=== PATIENT | female | born 1960 | race African-American/Black ===

== ENCOUNTER 2016-07-09 17:00 | Emergency (ER) | payer SELFPAY ==
[2016-07-09] MEDS ORDERED: Benzonatate 100 MG CAP ONE (17:16)
--- NOTE | 2016-07-09 18:03 | ERRECORD ---
[facility] EMERGENCY RECORD HPI FLU-LIKE SYNDROME (17:20 JPIP) CHIEF COMPLAINT: Patient presents for evaluation of body aches, Patient presents for evaluation of fever, subjective, Patient presents for evaluation of upper respiratory infection, Patient presents for evaluation of +cough and congestion. HISTORIAN: History provided by patient. LOCATION: Symptoms are generalized. QUALITY: Pain is dull in nature, described as aching. SEVERITY: Current severity of pain rated as 8/10. TIME COURSE: Sudden onset of symptoms, There has been no change in the patient's symptoms over time, are constant. ASSOCIATED WITH: No associated abdominal pain, Associated with cough, No associated diarrhea, Associated with headache, No associated vomiting, No associated neck pain, No associated rash, No associated shortness of breath, No associated urinary tract infection signs or symptoms. EXACERBATED BY: Patient's condition exacerbated by nothing. RELIEVED BY: Patient's condition relieved by nothing. ROS (17:21 JPIP) CONSTITUTIONAL: Historian reports chills, reports fever. Subjective fever of felt feverish, Historian reports malaise. EYES: Historian denies eye pain, denies eye redness. ENT: Historian denies dysphagia, reports rhinorrhea, denies sore throat. CARDIOVASCULAR: Historian denies chest pain, denies dyspnea on exertion, denies palpitations. RESPIRATORY: Historian reports cough, reports shortness of breath, denies sputum, denies stridor, denies wheezing. thin sputum with occasional blood streaking. GI: Historian denies nausea, denies vomiting. MUSCULOSKELETAL: Historian reports myalgias. SKIN: Historian denies rash, denies skin changes, denies skin lesions. NEUROLOGIC: Historian reports headache, denies lethargy. NOTES: All systems reviewed, negative except as described above. PAST MEDICAL HISTORY MEDICAL HISTORY: Flu vaccine not up to date, Tetanus immunization up to date, Pneumococcal vaccine not up to date, Past medical history includes history of hypertension, which has been treated. (17:07 ERUI) FEMALE SURGICAL HISTORY: Surgical history of section, Notes: x2. 07/09/15. (17:07 ERUI) PSYCHIATRIC HISTORY: No previous psychiatric history. (17:07 ERUI) &a-1R&a+25V*p+0X*b9826K*c202B*c15G*c2P*p-0X&a-25V&a+1R Name: Cornelia Diaz : 1960 F55 MedRec: [id number] AcctNum: [id number] Prepared: ThuJul 09, 2016 17:55 by Interface Page 1 of 3 pMD [facility] EMERGENCY RECORD SOCIAL HISTORY: Patient denies alcohol use, Patient denies drug use, Patient has no smoking history, Patient denies alcohol use, Patient denies drug use, Patient has no smoking history, Lives at home, with family. (17:07 ERUI) NOTES: Nursing records reviewed, Medication list reviewed. (17:23 JPIP) KNOWN ALLERGIES latex gloves (Unconfirmed): Reaction: Anaphylaxis, Severity: Severe, Source: Patient UNKNOWN PAIN PILL I TOOK YEARS AGO (Unconfirmed) CURRENT MEDICATIONS No recorded medications VITAL SIGNS VITAL SIGNS: BP: 135/99, Pulse: 93, Resp: 20, Temp: 98.5 (Oral), O2 sat: 99 on Room Air, Time: 07/09/2016 17:06. (17:06 KMOR) Pain: 8, Time: 07/09/2016 17:07. (17:07 ERUI) PHYSICAL EXAM (17:22 JPIP) CONSTITUTIONAL: Vital signs reviewed, Patient afebrile, Pulse normal, Blood pressure, hypertensive, Respiratory rate normal, Patient appears, uncomfortable, ill appearing, Patient appears in pain, in mild pain distress, Patient alert and oriented to person, place and time. HEAD: Head exam included findings of head atraumatic, normocephalic. EYES: Eye exam included findings of eyelids normal to inspection, Conjunctiva normal, Sclera normal, no periorbital ecchymosis, no periorbital edema, no periorbital erythema. ENT: Ear exam normal, external ear normal, tympanic membranes normal, no foreign body, no drainage, no bleeding, Pharynx exam normal, not injected, no swelling, symmetrical, Uvula exam normal, midline, no edema, Mouth exam normal, mucous membranes moist. NECK: Neck exam included findings of normal range of motion, Trachea midline, Cervical adenopathy, multiple nodes, swollen, no tenderness. RESPIRATORY CHEST: Respiratory exam included findings of no respiratory distress, Breath sounds clear, No wheezing, No rales, No rhonchi, Breath sounds not absent, Breath sounds not diminished. CARDIOVASCULAR: Cardiovascular exam included findings of, rate tachycardic, rhythm regular, Heart sounds normal, no murmurs, no rub. UPPER EXTREMITY: Upper extremity exam included findings of inspection normal, Range of motion normal. NEURO: Ruiz coma scale 15, Neuro exam findings include patient oriented to person, place and time, no focal motor deficits. SKIN: Skin exam included findings of skin warm, dry, and normal &a-1R&a+25V*p+0X*g7952F*c202B*c15G*c2P*p-0X&a-25V&a+1R Name: Cornelia Diaz : 1960 F55 MedRec: [id number] AcctNum: [id number] Prepared: ThuJul 09, 2016 17:55 by Interface Page 2 of 3 pMD [facility] EMERGENCY RECORD in color. LYMPHATIC: Lymphatic exam included findings of cervical adenopathy, multiple nodes, swollen. PSYCHIATRIC: Psychiatric exam included findings of patient oriented to person place and time, Normal affect. MEDICATION ADMINISTRATION SUMMARY Drug Name: Amoxil, Dose Ordered: 1000 mg, Route: Oral, Status: Given, Time: 17:47 07/09/2016, Drug Name: Vanda Ji, Dose Ordered: 100 mg, Route: Oral, Status: Given, Time: 17:18 07/09/2016, Detailed record available in Medication Service section. PROBLEM LIST No recorded problems DIAGNOSIS (17:43 JPIP) FINAL: PRIMARY: upper respiratory infection. PRESCRIPTION promethazine-DM: SYRUP : : ORAL : Quantity: 5 Unit: mL Route: ORAL Schedule: every 8 hours PRN Dispense: 120 ml May substitute. Refills: No Refills . (17:20 JPIP) NOTES: for cough No refills. (17:20 JPIP) Amoxil: CAPSULE (HARD, SOFT, ETC.) : 500 mg : ORAL : Quantity: 1 Unit: mg Route: ORAL Schedule: 3 times a day (after meals) Dispense: 30 May substitute. Refills: No Refills . (17:42 JPIP) NOTES: No refills. (17:42 JPIP) DISPOSITION PATIENT: Disposition Type: Discharge, Disposition: *Discharge Home, Condition: Good. (17:43 JOYCE) Patient left the department. (17:53 NIHARIKA) [place]: NIHARIKA=GIDEON Manzano, Leatha COOK=DO Nevarez Joseph KMOR=GIDEON Gill, Yessica &a-1R&a+25V*p+0X*a5560H*c202B*c15G*c2P*p-0X&a-25V&a+1R Name: Cornelia Diaz : 1960 F55 MedRec: [id number] AcctNum: [id number] Prepared: ThuJul 09, 2016 17:55 by Interface Page 3 of 3 pMD MTDD
--- NOTE | 2016-07-09 18:08 | PICIS ---
[facility] EMERGENCY RECORD TRIAGE (17:05 ERUI) TRIAGE NOTES: c/o cough, headache, fever onset on thursday. (17:05 ERUI) PATIENT: NAME: Cornelia Diaz, AGE: 55, GENDER: female, : Thu1960, TIME OF GREET: ThuJul 09, 2016 17:01, PREFERRED LANGUAGE: Turkish, ETHNICITY: Not or , ECODE BILLING MAP: [facility], SSN: [id number], Zip Code: [address], KG WEIGHT: [phone], , , PERSON ID: [id number], PAYMENT: SJ[employer] Self Pay, PCP: MD Banks Kyle. (17:05 ERUI) PHONE: . (17:19) COMPLAINT: cough , headache. (17:05 ERUI) ADMISSION: URGENCY: 4 Non Urgent, ADMISSION SOURCE: Home, TRANSPORT: CAR, BED: TRIAGE. (17:05 ERUI) SIRS SCORING: Heart Rate 55-109 (0), Temp range 96.8-101.1 (0), respiratory rate 12-24 (0), Mental Status altered: no (0). (17:07 ERUI) TRIAGE SCREENING: Patient denies suicidal ideation, Patient denies presence of domestic violence. (17:07 ERUI) TREATMENTS IN PROGRESS: Treatments given Prehospital: none. (17:07 ERUI) PROVIDERS: TRIAGE NURSE: Leatha Manzano RN. (17:05 ERUI) PREVIOUS VISIT ALLERGIES: latex gloves. (17:05 ERUI) latex gloves. (17:07 ERUI) KNOWN ALLERGIES latex gloves (Unconfirmed): Reaction: Anaphylaxis, Severity: Severe, Source: Patient UNKNOWN PAIN PILL I TOOK YEARS AGO (Unconfirmed) CURRENT MEDICATIONS No recorded medications VITAL SIGNS VITAL SIGNS: BP: 135/99, Pulse: 93, Resp: 20, Temp: 98.5 (Oral), O2 sat: 99 on Room Air, Time: 07/09/2016 17:06. (17:06 KMOR) Pain: 8, Time: 07/09/2016 17:07. (17:07 ERUI) NURSING ASSESSMENT: ENT (17:08 ERUI) CONSTITUTIONAL: Patient arrives ambulatory, Gait steady, History obtained from patient, Patient appears comfortable, Patient cooperative, Patient alert, Oriented to person, place and time, Skin warm, Skin dry, Patient complains of cough, headache, bodyache. PAIN: aching pain, bodyaches, constant, on a scale 0-10 patient rates pain as 8, Pain exacerbated by nothing, Nothing has been tried to alleviate the pain. ENT: Ear assessment findings include ear normal to inspection, Mouth and throat assessment findings include mouth inspection normal, no associated fever, Associated with headache. RESPIRATORY/CHEST: Breath sounds clear, Respiratory assessment &a-1R&a+25V*p+0X*u8480N*c202B*c15G*c2P*p-0X&a-25V&a+1R Name: Cornelia Diaz : 1960 F55 MedRec: [id number] AcctNum: [id number] Prepared: ThuJul 09, 2016 18:01 by Interface Page 1 of 7 pMD [facility] EMERGENCY RECORD findings include respiratory effort easy, Respirations regular, Conversing normally, Neck and chest exam findings include trachea midline, Chest expansion equal, Chest movement symmetrical, no signs of distress, Associated with cough, dry, no associated fever. SAFETY: Side rails up, Cart/Stretcher in lowest position, Call light within reach, Hospital ID band on. NURSING PROCEDURE: DISCHARGE NOTE (17:50 ERUI) DISCHARGE: Patient discharged to home, ambulating without assistance, driving self, unaccompanied, Summary of Care printed/ provided, Discharge instructions given to patient, Simple or moderate discharge teaching performed, Prescriptions given and instructions on side effects given, Name of prescription(s) given: AMOXIL, PROMETHAZINE DM, Above person(s) verbalized understanding of discharge instructions and follow-up care. BELONGINGS: Belongings remain with patient, Valuables remain with patient. NURSING PROCEDURE: ENT (17:07 KMOR) PATIENT IDENTIFIER: Patient actively involved in identification process, Patient's identity verified by patient stating name, Patient's identity verified by patient stating date. ENT: Nasal swab collected, labeled in the presence of the patient and sent to lab for testing of, influenza A, influenza B, collected by GIDEON Juan. NOTES: Patient tolerated procedure well. ORDER DETAILS Order Name: Influenza A&B Ag Screen, Status: Active, Time: 17:07 07/09/2016, User: JAVAD, - Ordered for: DO Nevarez Joseph, - Entered by: GIDEON Gill Krista - ThuJul 09, 2016 17:07, - Quantity: 1. MEDICATION ADMINISTRATION SUMMARY Drug Name: Amoxil, Dose Ordered: 1000 mg, Route: Oral, Status: Given, Time: 17:47 07/09/2016, Drug Name: Tessalon Perles, Dose Ordered: 100 mg, Route: Oral, Status: Given, Time: 17:18 07/09/2016, Detailed record available in Medication Service section. MEDICATION SERVICE Amoxil: Order: Amoxil (amoxicillin trihydrate) - Dose: 1000 mg : Oral Schedule: Now Ordered by: Abhinav Nevarez DO Entered by: Abhinav Nevarez DO ThuJul 09, 2016 17:42 , &a-1R&a+25V*p+0X*t7542H*c202B*c15G*c2P*p-0X&a-25V&a+1R Name: Cornelia Diaz : 1960 F55 MedRec: [id number] AcctNum: [id number] Prepared: ThuJul 09, 2016 18:01 by Interface Page 2 of 7 pMD [facility] EMERGENCY RECORD Acknowledged by: Leatha Manzano RN ThuJul 09, 2016 17:43 Documented as given by: Leatha Manzano RN ThuJul 09, 2016 17:47 Patient, Medication, Dose, Route and Time verified prior to administration. Amount given: 1000MG, Site: Medication administered P.O., Patient appears Awake and alert- acceptable, Correct patient, time, route, dose and medication confirmed prior to administration, Patient advised of actions and side-effects prior to administration, Allergies confirmed and medications reviewed prior to administration. : Follow Up : Response assessment performed, No signs or symptoms of allergic reaction noted. (17:50 ERUI) Vanda Ji: Order: Shannonsalon Perles (benzonatate) - Dose: 100 mg : Oral Schedule: Now Ordered by: Abhinav Nevarez DO Entered by: Abhinav Nevarez DO ThuJul 09, 2016 17:15 , Acknowledged by: Yessica Gill RN ThuJul 09, 2016 17:15 Documented as given by: Yessica Gill RN ThuJul 09, 2016 17:18 Patient, Medication, Dose, Route and Time verified prior to administration. Amount given: 100mg, Site: Medication administered P.O., Correct patient, time, route, dose and medication confirmed prior to administration, Patient advised of actions and side-effects prior to administration, Allergies confirmed and medications reviewed prior to administration, Patient in position of comfort, Side rails up, Cart in lowest position, Family at bedside. : Follow Up : Response assessment performed, No signs or symptoms of allergic reaction noted. (17:50 ERUI) HPI FLU-LIKE SYNDROME (17:20 JPIP) CHIEF COMPLAINT: Patient presents for evaluation of body aches, Patient presents for evaluation of fever, subjective, Patient presents for evaluation of upper respiratory infection, Patient presents for evaluation of +cough and congestion. HISTORIAN: History provided by patient. LOCATION: Symptoms are generalized. QUALITY: Pain is dull in nature, described as aching. SEVERITY: Current severity of pain rated as 8/10. TIME COURSE: Sudden onset of symptoms, There has been no change in the patient's symptoms over time, are constant. ASSOCIATED WITH: No associated abdominal pain, Associated with cough, No associated diarrhea, Associated with headache, No associated vomiting, No associated neck pain, No associated rash, No associated shortness of breath, No associated urinary tract infection signs or symptoms. EXACERBATED BY: Patient's condition exacerbated by nothing. RELIEVED BY: Patient's condition relieved by nothing. &a-1R&a+25V*p+0X*m1895Z*c202B*c15G*c2P*p-0X&a-25V&a+1R Name: Cornelia Diaz : 1960 F55 MedRec: [id number] AcctNum: [id number] Prepared: ThuJul 09, 2016 18:01 by Interface Page 3 of 7 pMD [facility] EMERGENCY RECORD ROS (17:21 JPIP) CONSTITUTIONAL: Historian reports chills, reports fever. Subjective fever of felt feverish, Historian reports malaise. EYES: Historian denies eye pain, denies eye redness. ENT: Historian denies dysphagia, reports rhinorrhea, denies sore throat. CARDIOVASCULAR: Historian denies chest pain, denies dyspnea on exertion, denies palpitations. RESPIRATORY: Historian reports cough, reports shortness of breath, denies sputum, denies stridor, denies wheezing. thin sputum with occasional blood streaking. GI: Historian denies nausea, denies vomiting. MUSCULOSKELETAL: Historian reports myalgias. SKIN: Historian denies rash, denies skin changes, denies skin lesions. NEUROLOGIC: Historian reports headache, denies lethargy. NOTES: All systems reviewed, negative except as described above. PAST MEDICAL HISTORY MEDICAL HISTORY: Flu vaccine not up to date, Tetanus immunization up to date, Pneumococcal vaccine not up to date, Past medical history includes history of hypertension, which has been treated. (17:07 ERUI) FEMALE SURGICAL HISTORY: Surgical history of section, Notes: x2. 07/09/15. (17:07 ERUI) PSYCHIATRIC HISTORY: No previous psychiatric history. (17:07 ERUI) SOCIAL HISTORY: Patient denies alcohol use, Patient denies drug use, Patient has no smoking history, Patient denies alcohol use, Patient denies drug use, Patient has no smoking history, Lives at home, with family. (17:07 ERUI) NOTES: Nursing records reviewed, Medication list reviewed. (17:23 JPIP) PHYSICAL EXAM (17:22 JPIP) CONSTITUTIONAL: Vital signs reviewed, Patient afebrile, Pulse normal, Blood pressure, hypertensive, Respiratory rate normal, Patient appears, uncomfortable, ill appearing, Patient appears in pain, in mild pain distress, Patient alert and oriented to person, place and time. HEAD: Head exam included findings of head atraumatic, normocephalic. EYES: Eye exam included findings of eyelids normal to inspection, Conjunctiva normal, Sclera normal, no periorbital ecchymosis, no periorbital edema, no periorbital erythema. ENT: Ear exam normal, external ear normal, tympanic membranes normal, no foreign body, no drainage, no bleeding, Pharynx exam &a-1R&a+25V*p+0X*o0018Z*c202B*c15G*c2P*p-0X&a-25V&a+1R Name: Cornelia Diaz : 1960 F55 MedRec: [id number] AcctNum: [id number] Prepared: ThuJul 09, 2016 18:01 by Interface Page 4 of 7 pMD [facility] EMERGENCY RECORD normal, not injected, no swelling, symmetrical, Uvula exam normal, midline, no edema, Mouth exam normal, mucous membranes moist. NECK: Neck exam included findings of normal range of motion, Trachea midline, Cervical adenopathy, multiple nodes, swollen, no tenderness. RESPIRATORY CHEST: Respiratory exam included findings of no respiratory distress, Breath sounds clear, No wheezing, No rales, No rhonchi, Breath sounds not absent, Breath sounds not diminished. CARDIOVASCULAR: Cardiovascular exam included findings of, rate tachycardic, rhythm regular, Heart sounds normal, no murmurs, no rub. UPPER EXTREMITY: Upper extremity exam included findings of inspection normal, Range of motion normal. NEURO: Wesley coma scale 15, Neuro exam findings include patient oriented to person, place and time, no focal motor deficits. SKIN: Skin exam included findings of skin warm, dry, and normal in color. LYMPHATIC: Lymphatic exam included findings of cervical adenopathy, multiple nodes, swollen. PSYCHIATRIC: Psychiatric exam included findings of patient oriented to person place and time, Normal affect. EVENTS TRANSFER: Triage to Emergency Triage. (ThuJul 09, 2016 17:05 ERUI) Emergency Triage to Emergency Room -03. (17:06 ERUI) Removed from Emergency Emergency Room -03. (17:53 ERUI) O2SAT INTERPRETATION (17:24 JPIP) O2SAT: Continuous pulse oximetry, Oxygen saturation 99%, on room air, Oxygen saturation interpretation: Normal, No intervention required. PROBLEM LIST No recorded problems DIAGNOSIS (17:43 JPIP) FINAL: PRIMARY: upper respiratory infection. DISPOSITION PATIENT: Disposition Type: Discharge, Disposition: *Discharge Home, Condition: Good. (17:43 JPIP) Patient left the department. (17:53 ERUI) INSTRUCTION (17:42 JPIP) DISCHARGE: UPPER RESP INFECTION ANTIBIOTIC TREATMENT ADULT. FOLLOWUP: MD Jocelyn, [facility], [address] [place], [place] [id number], . SPECIAL: Finish all your antibiotics Follow up with Primary Care Physician within 72 hours &a-1R&a+25V*p+0X*k8357N*c202B*c15G*c2P*p-0X&a-25V&a+1R Name: Cornelia Diaz : 1960 F55 MedRec: [id number] AcctNum: [id number] Prepared: ThuJul 09, 2016 18:01 by Interface Page 5 of 7 pMD [facility] EMERGENCY RECORD Return to the Emergency Department for increased symptoms problems or concerns Take acetaminophen or ibuprofen for pain or fever. PRESCRIPTION promethazine-DM: SYRUP : : ORAL : Quantity: 5 Unit: mL Route: ORAL Schedule: every 8 hours PRN Dispense: 120 ml May substitute. Refills: No Refills . (17:20 JPIP) NOTES: for cough No refills. (17:20 JPIP) Amoxil: CAPSULE (HARD, SOFT, ETC.) : 500 mg : ORAL : Quantity: 1 Unit: mg Route: ORAL Schedule: 3 times a day (after meals) Dispense: 30 May substitute. Refills: No Refills . (17:42 JPIP) NOTES: No refills. (17:42 JPIP) IMAGING (17:52 ERUI) *DISCHARGE INSTRUCTIONS RECEIPT: Image captured from scanner. *SUPPLY CHARGE SHEET: Image captured from scanner. RESULTS (17:41 JPIP) MICROBIOLOGY: Influenza A&B Ag Screen: [id number] Collection DT: ThuJul 09, 2016 17:39, See comment below , @ ER ROOM#: ER-03 Source: Nasal swab Spec Desc: , Influenza A Antigen: NEGATIVE for the , presence of , INFLUENZA A Antigen , Influenza B Antigen: NEGATIVE for the , presence of , INFLUENZA B Antigen , The rapid Flu A&B test can distinguish between influenza A , Influenza A&B Ag Screen See comment below , and B viruses, but it does not differentiate influenza , Influenza A&B Ag Screen See comment below , subtypes. , Influenza A&B Ag Screen See comment below , Influenza A&B Ag Screen See comment below , Influenza A&B Ag Screen See comment below , Influenza A&B Ag Screen See comment below , characteristics of this device with human specimens infected , Influenza A&B Ag Screen See comment below , with the 2008 H1N1 influenza virus have not been , Influenza A&B Ag Screen See comment below , established. For example: this test cannot distinguish , Influenza A&B Ag Screen See comment below , influenza infections caused by novel H1N1 influenza A , Influenza A&B Ag Screen See comment below , viruses versus seasonal influenza A viruses. , Influenza A&B Ag Screen See comment below , , &a-1R&a+25V*p+0X*y6129W*c202B*c15G*c2P*p-0X&a-25V&a+1R Name: Cornelia Diaz : 1960 5 MedRec: [id number] AcctNum: [id number] Prepared: ThuJul 09, 2016 18:01 by Interface Page 6 of 7 pMD [facility] EMERGENCY RECORD Influenza A&B Ag Screen See comment below , A negative result does not exclude influenza virus , Influenza A&B Ag Screen See comment below , infection; therefore, if more conclusive testing is desired, , Influenza A&B Ag Screen See comment below , follow up confirmatory testing is warranted., Influenza A&B Ag Screen See comment below . [place]: NIHARIKA=GIDEON Manzano, Leatha JPIP=DO Nevarez Joseph KMOR=GIDEON Gill, Yessica &a-1R&a+25V*p+0X*x6667U*c202B*c15G*c2P*p-0X&a-25V&a+1R Name: Cornelia Diaz : 1960 5 MedRec: [id number] AcctNum: [id number] Prepared: ThuJul 09, 2016 18:01 by Interface Page 7 of 7 pMD MTDD
[2016-07-09] MEDS ORDERED: AMOXicillin 250 MG CAP ONE (18:45)
== END 2016-07-09 17:50 | disposition home or self-care (01) ==
LOC: BURERS 17:00
DX: J06.9 Acute upper respiratory infection, unspecified (principal); I10 Essential (primary) hypertension
CPT/HCPCS: 99283

== ENCOUNTER 2017-03-25 17:23 | Emergency (ER) | payer SELFPAY ==
[2017-03-25] MEDS ORDERED: Bacitracin Zinc 1 Packet ONE (17:42)
[2017-03-25] MEDS ORDERED: Adacel (T-DAP) 0.5 ML VIAL ONE (17:44)
== END 2017-03-25 17:58 | disposition home or self-care (01) ==
LOC: BURERS 17:23
DX: T63.301A Toxic effect of unspecified spider venom, accidental (unintentional), initial encounter (principal); I10 Essential (primary) hypertension
CPT/HCPCS: 90471; 90715

== ENCOUNTER 2017-04-19 03:39 | Emergency (ER) | payer SELFPAY ==
[2017-04-19] MEDS ORDERED: Benzonatate 100 MG CAP ONE (04:38)
[2017-04-19] MEDS ORDERED: Azithromycin 250 MG TAB ONE (04:59)
== END 2017-04-19 05:20 | disposition home or self-care (01) ==
LOC: BURERS 03:39
DX: J20.9 Acute bronchitis, unspecified (principal); I10 Essential (primary) hypertension
CPT/HCPCS: 87081; 87430; 99283

== ENCOUNTER 2017-07-24 21:44 | Emergency (ER) | payer SELFPAY ==
[2017-07-24] MEDS ORDERED: traMADol HCl 50 MG TAB ONE (22:35)
[2017-07-24] MEDS ORDERED: Ibuprofen 800 MG TAB ONE (22:35)
--- NOTE | 2017-07-25 07:34 | RAD ---
LEFT ELBOW 4 VIEWS: DATE: 07/24/17. FINDINGS: No acute fracture or joint effusion was seen. A slight irregularity along the surface of the lateral humeral condyle does not appear recent. It could relate to an old injury. IMPRESSION: No acute findings. POS: HOME
== END 2017-07-24 22:41 | disposition home or self-care (01) ==
LOC: BURERS 21:44
DX: S50.02XA Contusion of left elbow, initial encounter (principal); S80.11XA Contusion of right lower leg, initial encounter; S80.12XA Contusion of left lower leg, initial encounter; I10 Essential (primary) hypertension; Z79.899 Other long term (current) drug therapy; W19.XXXA Unspecified fall, initial encounter

== ENCOUNTER 2019-12-25 06:40 | Emergency (ER) | payer SELFPAY ==
--- NOTE | 2019-12-25 11:29 | RAD ---
RIGHT ANKLE THREE VIEWS: 12/25/2019 FINDINGS: Soft tissue swelling is seen laterally. No fracture is appreciated. The joint surfaces are normal in appearance. A calcaneal spur is noted. IMPRESSION: Soft tissue swelling. POS: HOME
== END 2019-12-25 07:23 | disposition home or self-care (01) ==
LOC: BURERS 06:40
DX: S93.411A Sprain of calcaneofibular ligament of right ankle, initial encounter (principal); I10 Essential (primary) hypertension; Z79.899 Other long term (current) drug therapy; X50.1XXA Overexertion from prolonged static or awkward postures, initial encounter

== ENCOUNTER 2020-05-18 19:08 | Emergency (ER) | payer SELFPAY ==
[2020-05-18] MEDS ORDERED: Fentanyl 100 MCG/2 ML VIAL ONE (19:46)
[2020-05-18] MEDS ORDERED: Ondansetron PF 4 MG/2 ML Vial ONE (19:46)
[2020-05-18] MEDS ORDERED: Labetalol HCl 100 MG/20 ML VIAL ONE ×2 (19:46→19:48)
[2020-05-18 20:35] LABS: #Basophils 0.1 thou/uL (0.0-0.2); #Eosinphils 0.2 thou/uL (0.0-0.7); #Monocytes 0.5 thou/uL (0.11-0.59); #Neutrophils 7.3 thou/uL (1.40-6.50); %Basophils 0.7 % (0.0-1.0); %Eosinophils 1.8 % (0.0-10.0); %Lymphocytes 20.1 % (21.0-51.0); %Monocytes 5.3 % (0.0-10.0); %Neutrophils 72.1 % (42.0-75.0); Anisocytosis SLIGHT = 6-15 cells (100X) (0-5/hpf); Hemoglobin 12.2 g/dL (12.0-16.0); Hypochromia SLIGHT = 6-15 cells (100X) (0-5/hpf); MDiff Complete? YES; Mean Corpuscular HGB CONC 29.2 g/dL (32.0-36.0); Mean Corpuscular Hemoglobin 21.6 pg (27.0-31.0); Mean Platelet Volume 10.5 fL (7.4-10.4); Microcytosis SLIGHT = 6-15 cells (100X) (0-5/hpf); Ovalocytes SLIGHT = 2-5 cells (100X) (0-1/hpf); Platelet Count 241 thou/uL (130-400); Poikilocytosis SLIGHT = 6-15 cells (100X) (0-5/hpf); RBC Distribution Width 12.6 % (11.5-14.5); Red Blood Cell (RBC) Count 5.66 mill/uL (4.20-5.40); White Blood Cell (WBC) Count 10.2 thou/uL (4.8-10.8)
[2020-05-18 20:39] LABS: ALT (SGPT) 18 U/L (8-55); AST (SGOT) 16 U/L (5-34); Albumin 4.4 g/dL (3.5-5.0); Alkaline Phosphatase 119 U/L (40-110); Anion Gap 17 mmol/L (10-20); BUN (Urea Nitrogen) 15 mg/dL (9.8-20.1); Bilirubin, Total 0.2 mg/dL (0.2-1.2); Calc. Creatinine Clearance 0 mL/min (70-130); Calcium 10.2 mg/dL (7.8-10.44); Carbon Dioxide 26 mmol/L (22-29); Chloride 102 mmol/L (98-107); Estimated GFR-MDRD Greater than 90; Globulin 4.3 g/dL (2.4-3.5); Glucose 159 mg/dL (70-105); Potassium 3.2 mmol/L (3.5-5.1); Protein, Total 8.7 g/dL (6.0-8.3); Sodium 142 mmol/L (136-145)
[2020-05-18] MEDS ORDERED: Potassium Chloride 20 MEQ TAB ONE (21:21)
[2020-05-18] MEDS ORDERED: niCARdipine 20MG In NaCl 20 MG/200 ML BAG ONE (21:21)
--- NOTE | 2020-05-18 21:34 | CT ---
CT OF THE BRAIN WITHOUT CONTRAST: 05/18/20 A noncontrast study was done and compared with the prior exam of 06/30/13. There is a large amount of subarachnoid hemorrhage present, particularly around the area of the circl e of Dai. No single location seems to have greater collection of the blood than others. Maybe ther e is a trifle more around the left Sylvian fissure near the distal reaches of the left MCA, but the b lood is distributed fairly evenly. A ruptured intracranial aneurysm is presumed. The ventricles are currently normal in size and show no shift. There is no intraventricular blood. No mass, acute stroke or obvious focal edema was seen in the brain. The skull itself was unremarkable. The visible paranasal sinuses were clear with perhaps underdeveloped maxillary sinuses, particularly on the left. IMPRESSION: Sizable subarachnoid hemorrhage mainly centered around the region of the northway of Dai. A ruptured aneurysm is presumed. Further studies required. Findings discussed with Dr. Dowling at 2114 on 05/18/20. Code CR POS: HOME
--- NOTE | 2020-05-18 21:36 | RAD ---
PORTABLE CHEST: 05/18/20 An AP portable film at 2009 is compared with 10/04/15 study. Mild cardiomegaly is no different than before. There is no congestive change or large pleural effusio n today. The lungs are clear. At most, there might be a little bit of basilar atelectasis on the righ t side. Faint calcification is seen in the aortic arch. IMPRESSION: Mild but stable cardiomegaly. No acute findings. POS: HOME
== END 2020-05-18 22:07 | disposition short-term general hospital (02) ==
LOC: BURERS 19:08
DX: I60.9 Nontraumatic subarachnoid hemorrhage, unspecified (principal); I10 Essential (primary) hypertension; E66.9 Obesity, unspecified; R11.2 Nausea with vomiting, unspecified; Z79.899 Other long term (current) drug therapy
CPT/HCPCS: 36415; 70450; 71045; 80053; 83880; 84484; 85025; 93005; 96365; 96375; J2405; J3010